=== PATIENT | female | born 2000 | race Caucasian/White ===

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

== ENCOUNTER 2022-04-29 05:21 | Emergency (ER) | payer BC, OTHER ==
[~2022-04-29] VITALS: Ht 165.1 cm; Wt 69.0 kg
[2022-04-29 07:22] VITALS: BP 116/67
== END 2022-04-29 07:30 | disposition home or self-care (01) ==
LOC: M ED 05:21
DX: J01.00 Acute maxillary sinusitis, unspecified (principal); F17.200 Nicotine dependence, unspecified, uncomplicated; Z88.0 Allergy status to penicillin; Z88.6 Allergy status to analgesic agent